=== PATIENT | female | born 1990 | race Caucasian/White ===

== ENCOUNTER 2016-07-16 07:11 | Day surgery (SDC) | payer OTHER ==
[2016-07-16] MEDS ORDERED: OXYMETAZOLINE HCL 0.05% NASAL SPRAY 15 ML BOTTLE ONE (07:13)
[2016-07-16] MEDS ORDERED: NEOSTIGMINE METHYLSULFATE 10 MG/10 ML VIAL ONE (09:13)
[2016-07-16] MEDS ORDERED: METOCLOPRAMIDE HCL INJ/PF 10 MG/2 ML SDV ONE (09:13)
[2016-07-16] MEDS ORDERED: ONDANSETRON HCL INJ/PF 4 MG/2 ML SDV ONE (09:13)
[2016-07-16] MEDS ORDERED: MIDAZOLAM 2 MG/2 ML INJ ONE (09:13)
[2016-07-16] MEDS ORDERED: FENTANYL CITRATE INJ/PF 100 MCG/2 ML AMPUL ONE ×2 (09:13)
[2016-07-16] MEDS ORDERED: LIDOCAINE 2% INJ-PF (20 MG/ML) 10 ML AMPUL ONE (09:14)
[2016-07-16] MEDS ORDERED: PROPOFOL INJ 200 MG/20 ML VIAL IV ONE (09:14)
[2016-07-16] MEDS ORDERED: GLYCOPYRROLATE INJ 0.4 MG/2 ML VIAL ONE (09:14)
[2016-07-16] MEDS ORDERED: DEXAMETHASONE SOD PHOS INJ 10 MG/1 ML VIAL ONE (09:14)
[2016-07-16] MEDS ORDERED: ACETAMINOPHEN 100 ML IV ONE (09:14)
[2016-07-16] MEDS ORDERED: EPHEDRINE SULFATE INJ 50 MG/1 ML AMPULE ONE (09:14)
[2016-07-16] MEDS ORDERED: SUCCINYLCHOLINE CHLORIDE INJ 200 MG/10 ML VIAL ONE (09:15)
[2016-07-16] MEDS ORDERED: ROCURONIUM BROMIDE INJ 50 MG/5 ML VIAL IV ONE (09:15)
[2016-07-16] MEDS ORDERED: MORPHINE SULFATE 10 MG/ML INJ ONE (10:36)
--- NOTE | 2016-07-16 10:54 | SURGICARE OPERATIVE REPORT E ---
[facility] Operative Report NAME: CRIS WESTBROOK AGE: 25Y DATE OF SURGERY: 07/16/2016 ROOM: PREOPERATIVE DIAGNOSIS: Chronic tonsillitis. POSTOPERATIVE DIAGNOSIS: Chronic tonsillitis. OPERATION: Tonsillectomy. SURGEON: MILAD DUNN M.D. ANESTHESIA: - MD INDICATIONS: A 25-year-old woman with a long history of chronic tonsillitis, chronic caseous debris over a 3-year period. Chronic halitosis. PREOPERATIVE EXAMINATION: With 2+ chronic tonsils with caseous debris. She is taken to the operating room for removal of her tonsils. Risks and benefits discussed and accepted preoperatively. OPERATIVE PROCEDURE: Under general anesthesia via orotracheal tube, patient placed in the Sheyla position. A time-out procedure performed. The right tonsil was seized at the superior pole and a Coblation tonsillectomy was performed. Similar procedure performed for left tonsil. Final hemostasis obtained with suction electrocautery. Patient tolerated the entire procedure well and was taken to the recovery room area in satisfactory condition. TOTAL BLOOD LOSS FOR PROCEDURE: Less than 5 mL. DICTATING PHYSICIAN: MILAD DUNN M.D. [id number] PHY#: [id number] ID: [id number] JOB#: [id number] ACCT: [id number] cc:MILAD DUNN M.D. >
== END 2016-07-16 11:31 | disposition home or self-care (01) ==
LOC: SC 07:11
PROVIDERS: ATTEND Otolaryngology
PROC: 0CTPXZZ Resection of Tonsils, External Approach (ICD-10-PCS; principal; 2016-07-16 09:15)
DX: J35.1 Hypertrophy of tonsils (principal); F32.9 Major depressive disorder, single episode, unspecified; G43.909 Migraine, unspecified, not intractable, without status migrainosus; Z79.899 Other long term (current) drug therapy; Z88.2 Allergy status to sulfonamides; Z88.1 Allergy status to other antibiotic agents
CPT/HCPCS: 88304 ×2; 42826; J2250; J3490 ×2; J3010; J2765; J2270; J0330; J2405; J2704; J1100; J0131; 170